=== PATIENT | female | born 1990 | race Caucasian/White ===

== ENCOUNTER → 2019-12-06 | Outpatient (CLI) | payer OTHER ==
--- NOTE | 2019-12-06 15:50 | US ---
EXAMINATION TYPE: Transabdominal DATE OF EXAM: 12/06/2019 3:34 PM COMPARISON: NONE CLINICAL HISTORY: Z34.90 Normal . early ob, spotting twice, nothing now EXAM PERFORMED: OBTA EXAM MEASUREMENTS: GESTATIONAL AGE / DATING Physician Established: Not yet established Dates by LMP: (11 weeks/2 days) EDC: 06/24/2020 Dates by First Scan: No previous this is first scan Dates by Current Scan for: (11 weeks/5 days) EDC: 06/21/2020 MATERNAL ANATOMY Uterus: 10.3 x 8.5 x 7.0cm Right Ovary: 2.6 x 1.8 x 1.8cm Left Ovary: 2.3 x 2.3 x 1.8cm Post CDS / Adnexa: wnl Presence of free fluid: no Presence of corpus luteal cyst: yes left ovary = 1.6cm Presence of subchorionic bleed: no GESTATION / SURVEY CRL: 4.9 (11 weeks/5 days) MSD: wnl Yolk Sac (normal less than 6mm): not seen Heart Rate: 172 bpm Rhythm: Normal IUP: Viable IUP Date of LMP: 09/18/2019 IMPRESSION: 1. Single intrauterine gestation estimated at 11 weeks 5 days gestation based on crown-rump length. C ardiac activity measures 172 bpm.
== END | disposition home or self-care (01) ==
LOC: RADUSWWP 15:06
DX: Z34.90 Encounter for supervision of normal pregnancy, unspecified, unspecified trimester (principal); Z3A.11 11 weeks gestation of pregnancy
CPT/HCPCS: 76801

== ENCOUNTER → 2020-01-29 | Outpatient (CLI) | payer OTHER ==
--- NOTE | 2020-01-29 10:55 | US ---
EXAMINATION TYPE: US OB anatomy transabd DATE OF EXAM: 01/29/2020 COMPARISON: US 12/06/2019 HISTORY: Z34.90 supervision of normal Anatomy scan TECHNIQUE: Transabdominal (TA) EXAM MEASUREMENTS: GESTATIONAL AGE / DATING Physician Established: (19weeks/0 days) EDC: 06/24/2020 Dates by LMP: (19weeks/0 days) EDC: 06/24/2020 Dates by First Scan: (19weeks/3 days) EDC: 06/21/2020 Dates by Current Scan for: (19weeks/2 days) EDC: 06/22/2020 SURVEY IUP: Single PLACENTA: Posterior PREVIA: No previa VIANEY: 12.4 Normal CERVICAL LENGTH (transabdominal: norm > 3.0cm): 3.4m BIOMETRY PRESENTATION: Vertex LIE: Longitudinal BPD: 4.1 cm 18 weeks / 4 days HC: 16.0 cm 18 weeks / 6 days AC: 14.5 cm 19 weeks / 6 days FL: 3.1 cm 19 weeks / 5 days ESTIMATED WEIGHT IN GRAMS: 301 grams ESTIMATED WEIGHT IN LBS/OZ: 0 lbs. 11 oz. WEIGHT PERCENTAGE BASED ON ESTABLISHED DATE: 80 % HC/AC: 1.1 Normal FL/AC: 21% Normal HEART RATE: 149 bpm RHYTHM: Normal ANATOMY SEEN (within normal limits): * Lateral Vent (< 1 cm): 0.7 cm * Cisterna Magna (< 1.1: cm): 0.5cm * Nuchal Fold (< 0.6 cm): 0.5cm * Cerebellum (varies with age): 1.8cm Choroid Plexus (bilateral) Midline Falx Cavus Septi Pellucidi Four Chamber Heart Outflow tracts: LVOT/RVOT Stomach Situs Diaphragm Kidneys (bilateral) Bladder Cord Insert Three Vessel Cord Longitudinal Spine Transverse Spine Arms (bilateral) Legs (bilateral) ANATOMY NOT SEEN: Nose / Lips due to position Viable IUP, measurements consistent with dates. IMPRESSION: Single viable intrauterine as discussed above. Limited evaluation of the nose and lips.
== END | disposition home or self-care (01) ==
LOC: RADUSWWP 07:46
PROVIDERS: ATTEND Obstetrics & Gynecology
DX: Z34.90 Encounter for supervision of normal pregnancy, unspecified, unspecified trimester (principal); Z3A.19 19 weeks gestation of pregnancy
CPT/HCPCS: 76811

== ENCOUNTER → 2020-03-26 | Outpatient (CLI) | payer OTHER ==
--- NOTE | 2020-03-26 15:47 | US ---
EXAMINATION TYPE: US OB >= 14 wk fetus DATE OF EXAM: 03/26/2020 COMPARISON: NONE HISTORY: Z34.90 Normal evaluate nose/lips and growth TECHNIQUE: Transabdominal (TA) EXAM MEASUREMENTS: GESTATIONAL AGE / DATING Physician Established: (27 weeks/ 1 days) EDC: 06/24/20 Dates by LMP: (27 weeks/1 days) EDC: 06/24/20 Dates by First Scan: (27 weeks/4 days) EDC: 06/21/20 Dates by Current Scan for: (27 weeks/4 days) EDC: 06/21/20 SURVEY IUP: Single PLACENTA: Posterior PREVIA: No previa VIANEY: 15.8 cm Normal CERVICAL LENGTH (transabdominal: norm > 3.0cm): 3.9 cm BIOMETRY PRESENTATION: Vertex LIE: Transverse lie with head maternal LT BPD: 6.7 cm 27 weeks / 0 days HC: 25.5 cm 27 weeks / 5 days AC: 22.7 cm 27 weeks / 1 days FL: 5.3 cm 28 weeks / 1 days ESTIMATED WEIGHT IN GRAMS: 1083 grams ESTIMATED WEIGHT IN LBS/OZ: 2 lbs. 6 oz. WEIGHT PERCENTAGE BASED ON ESTABLISHED DATE: 52 % HC/AC: 1.12 Normal FL/AC: 23% Normal HEART RATE: 140 bpm RHYTHM: Normal ANATOMY SEEN (within normal limits): Four Chamber Heart Stomach Situs Nose / Lips Diaphragm Kidneys (bilateral) Bladder Cord Insert Three Vessel Cord ANATOMY NOT SEEN: due to position * Lateral Vent (< 1 cm) * Cisterna Magna (< 1.1 cm) * Cerebellum (varies with age) Choroid Plexus (bilateral) Midline Falx Cavus Septi Pellucidi Longitudinal Spine Transverse Spine Arms (bilateral) Legs (bilateral) Outflow tracts: LVOT/RVOT IMPRESSION: 1. Single intrauterine gestation estimated at 27 weeks 4 days gestation based on current ultrasound m easurements. Cardiac activity measures 140 bpm.
== END | disposition home or self-care (01) ==
LOC: RADUSWWP 14:58
PROVIDERS: ATTEND Obstetrics & Gynecology
DX: Z34.92 Encounter for supervision of normal pregnancy, unspecified, second trimester (principal); Z3A.27 27 weeks gestation of pregnancy
CPT/HCPCS: 76805

== ENCOUNTER → 2020-05-22 | Outpatient (CLI) | payer OTHER ==
--- NOTE | 2020-05-22 22:51 | US ---
EXAMINATION TYPE: US OB >= 14 wk fetus DATE OF EXAM: 05/22/2020 COMPARISON: Multiple US's CLINICAL HISTORY: O24.919 Gestational Diabetes TECHNIQUE: Ultrasound March 26, 2020 GESTATIONAL AGE / DATING Physician Established: (35 weeks/2 days) EDC: 06/24/2020 Dates by LMP: 09/18/2019 (35 weeks/2 days) EDC: 06/24/2020 Dates by First Scan: (35 weeks/5 days) EDC: 06/21/2020 Dates by Current Scan: (36 weeks/0 days) EDC: 06/19/2020 SURVEY IUP: Single PLACENTA: Posterior PREVIA: No Previa VIANEY: 16.6 cm Normal CERVICAL LENGTH (transabdominal: norm > 3.0cm): 4.5 cm BIOMETRY PRESENTATION: Vertex BPD: 9.1 cm 37 weeks / 0 days HC: 32.2 cm 36 weeks / 4 days AC: 32.4 cm 36 weeks / 2 days FL: 7.0 cm 36 weeks / 1 days ESTIMATED WEIGHT IN GRAMS: 2919 grams ESTIMATED WEIGHT IN LBS/OZ: 6 lbs. 7 oz. WEIGHT PERCENTAGE BASED ON ESTABLISHED DATES: 78.1% HC/AC: 1.0 Normal FL/AC: 21.7 Normal HEART RATE: 141 bpm RHYTHM: Normal No cervical thinning. No placenta previa. Estimated amniotic fluid index within normal limits. biometry measurements concordant and within normal limits. Normal cephalad presentation. Satisfactory interval growth noted. IMPRESSION: As above.
== END ==
LOC: RADUSWWP 16:12
PROVIDERS: ATTEND Obstetrics & Gynecology
DX: O24.419 Gestational diabetes mellitus in pregnancy, unspecified control (principal); Z3A.36 36 weeks gestation of pregnancy
CPT/HCPCS: 76805

== ENCOUNTER → 2023-03-16 | Outpatient (CLI) | payer BC ==
--- NOTE | 2023-03-16 09:39 | US ---
EXAMINATION TYPE: US pelvis complete transvag DATE OF EXAM: 03/16/2023 COMPARISON: 05/22/2020. CLINICAL INDICATION: Female, 33 years old with history of N94.6 DYSMENORRHEA, UNSPECIFIED; Heavy mens es x 2 1/2 years. Hx Csect x 2 and Tubal' . TECHNIQUE: Transvaginal (TV) and Transabdominal (TA) . Transabdominal sonographic images of the pel vis were acquired. Transvaginal sonographic images were medically necessary to better assess the fol lowing anatomy: Uterus, Ovaries, and Endometrium Date of LMP: 02/28/2023 EXAM MEASUREMENTS: Uterus: 8.4 x 4.5 x 5.3 cm Endometrial Stripe: 1.0 cm Right Ovary: 3.0 x 2.4 x 2.2 cm Left Ovary: 4.5 x 4.3 x 4.0 cm 1. Uterus: Anteverted scars noted 2. Endometrium: wnl 3. Right Ovary: wnl 4. Left Ovary: Multiloculated complex cyst with hypoechoic internal echogenicity. = 3.5 x 3.1 x 3.1 cm 5. Bilateral Adnexa: Fluid in left adnexa adjacent to left ovary and left uterine fundus 6. Posterior cul-de-sac: wnl IMPRESSION: 1. Hemorrhagic left ovarian follicle. Short-term follow-up in 6-8 weeks recommended to ensure resolu tion. 2. Endometrium within normal limits for thickness.
== END | disposition home or self-care (01) ==
LOC: RADUSWWP 08:50
PROVIDERS: ATTEND Obstetrics & Gynecology
DX: N83.02 Follicular cyst of left ovary (principal); N94.6 Dysmenorrhea, unspecified
CPT/HCPCS: 76830; 76856

== ENCOUNTER → 2024-03-20 | Outpatient (CLI) | payer BC ==
--- NOTE | 2024-03-22 19:41 | MR ---
EXAMINATION TYPE: MR brain wo con DATE OF EXAM: 03/20/2024 9:53 PM COMPARISON: None. CLINICAL INDICATION: Female, 34 years old with history of R51.9, New onset headaches TECHNIQUE: Multiplanar, multiecho imaging on a 3.0 Joann magnet is performed through the brain. Stud y is performed within 24 hours of arrival to the hospital.Multiplanar, multiecho imaging on a 3.0 Sameera la magnet is performed through the knee. IV Contrast: mL (None, if empty) FINDINGS: The craniovertebral junction is normal. The pituitary is normal. Diffusion-weighted imaging is performed. No abnormal hyperintensity is present to suggest an acute i ntracranial infarct or acute ischemic change. Signal within the brain is normal. No mass effect is evident. Ventricles and sulci are appropriate for the patient age. IMPRESSION: 1. No acute intracranial process. [facility], , 03/22/2024 7:38 PM
== END | disposition home or self-care (01) ==
LOC: RADMRIMAIN 21:00
PROVIDERS: ATTEND Family Medicine
DX: R51.9 Headache, unspecified (principal)
CPT/HCPCS: 70551